=== PATIENT | male | born 1960 | race Caucasian/White ===

== ENCOUNTER 2019-02-28 21:03 | Emergency (ER) | payer BC ==
[2019-02-28] MEDS ORDERED: predniSONE 20 MG TAB ONE (21:18)
== END 2019-02-28 23:15 | disposition home or self-care (01) ==
LOC: EDBD 21:03 → MADERS 21:03
DX: H81.13 Benign paroxysmal vertigo, bilateral (principal); H83.09 Labyrinthitis, unspecified ear
CPT/HCPCS: 99284; J7512